=== PATIENT | female | born 1945 | race Caucasian/White ===

== ENCOUNTER → 2016-05-13 | Outpatient (CLI) | payer OTHER, MEDICARE ==
--- NOTE | 2016-05-13 17:00 | DX ---
Lumbar Spine, Two Views 1317 hours Indication: Lumbar spine stenosis. Comparison: Two-view lumbar spine dated August 29, 2014. Technique: Upright AP and lateral views. Findings: 9 mm of anterolisthesis of L4 on L5, posterior interspinous fixator devices at L4-L5, mild -to-moderate degenerative disk arthropathy at L4-L5, severe degenerative disk disease at L5-S1, and m arked productive facet arthropathy at L4-L5 and L5-S1 are all unchanged. No compression fracture or b one lesion has developed. Impression: 1. Grade 1 spondylolisthesis at L4-L5 and associated degenerative disk and facet arthropathy in the l umbar spine are unchanged. 2. No compression fracture.
== END ==
LOC: FIMAGING 13:05
PROVIDERS: ATTEND Orthopaedic Surgery Orthopaedic Surgery of the Spine
DX: M51.36 Other intervertebral disc degeneration, lumbar region (principal); M43.16 Spondylolisthesis, lumbar region

== ENCOUNTER 2016-05-14 08:40 | Inpatient (IN) | payer OTHER, MEDICARE ==
--- NOTE | 2016-05-13 17:19 | GHP ---
[f rep st] PREOP HISTORY AND PHYSICAL DATE OF ADMISSION: 05/14/2016 HISTORY: The patient is a pleasant woman whom I have known for a couple of years. She is 2 years st atus post an L4-5 laminectomy with posterior instrumentation and fusion using intraspinous process de vice for spinal stenosis and degenerative spondylolisthesis. The patient ultimately recovered from h er surgery and was doing quite well. She noted that 100% of her preoperative right lower extremity p ain had resolved at her 3 month appointment. The patient then states that she fell in July of 2015 a nd injured her back as well as her left knee. She states that she had surgery on her left knee in 2015 but has continued to have low back pain and bilateral lower extremity pain. She compla ins of cramping in bilateral buttocks, right slightly greater than the left. She has tried physical therapy, and dry needling as well as pain medication. On a followup MRI, she has had recurrent L4-5 stenosis as well as what appears to be new left L5-S1 foraminal stenosis. The instrumentation at L4- 5 appears to be well seeded and intact. Due to this pain that she has been dealing with since July of 2015, she has elected to undergo further surgery. This is in the form of a revision L4-5 partial laminectomy with revision of the interspinous process device and a left L5-S1 laminal foraminotomy, a lso with an interspinous process device if her sacral anatomy allows. SOCIAL HISTORY: Negative for tobacco and positive for social use of alcohol. FAMILY HISTORY: Cancer. PAST MEDICAL HISTORY: Negative. PAST SURGICAL HISTORY: The patient has had an exploratory laparotomy due to a liver laceration many years ago. She has also had the aforementioned L4-5 partial laminectomy with posterior instrumentati on and fusion. ALLERGIES: None. MEDICATIONS: Trazodone and Vicodin. REVIEW OF SYSTEMS: A 10-point review of systems is negative for any pertinent positives. PHYSICAL EXAM: GENERAL: The patient is a well developed, well nourished, very pleasant woman to int eract with. CARDIAC: Reveals a regular rate and rhythm without any detectable murmur, rub or gallop . LUNGS: Clear to auscultation. ABDOMEN: Benign with good bowel sounds throughout. Motor strengt h of bilateral lower extremities is 5/5 throughout with the exception of the left EHL is 4/5. Sensat ion is intact to bilateral lower extremities. Straight leg raising is negative x2. She is tender in the right sciatic notch and in the left L5-S1 paraspinal muscles. DIAGNOSTIC DATA: New MRI shows left L5-S1 foraminal stenosis and recurrent L4-5 stenosis. IMPRESSION: 1. Left L5 and S1 radiculopathy. 2. Recurrent stenosis at L4-5. 3. Left L5-S1 foraminal stenosis. PLAN: Patient will undergo revision surgery as previously mentioned. Because she lives alone in [place], [place], she will need postoperative inpatient snf facility postoperatively and krishna has decided she would like to go to [facility] for this. I think she will be a good candidate. Po tential risks, benefits, and possible complications of the upcoming surgery have been discussed at [facility]. These include, but are not limited to, dural tear with CSF leak, meningitis, nerve root injury , partial or complete paralysis, infection, lack of improvement in symptomatology. specifically back pain and bilateral lower extremity pain, nonunion, need for further surgery, DVT, PE, pneumonia, stro ke, heart attack, hemorrhage, blindness, and . The patient understands these risks and that the re is a chance that her symptoms may not improve, and is willing to proceed. She will be n.p.o. afte r midnight farzad. /[id number]/MODL
[~2016-05-14 08:40] MED LIST: BACITRACIN 50,000 UNITS/10 ML SYR IRR ONE; BUPIVACAINE 0.25% 30 ML SDV ONE; BUPIVACAINE/EPI 0.25% 30 ML SDV ONE; GENTAMICIN 80 MG/NACL 100 ML IV ONE; THROMBIN (RECOMBINANT) 20,000 UNIT VIAL TP ONE; ceFAZolin 2 GM/DEXTROSE 100 ML IV ONE; methylPREDNISolone SOD SUCC 125 MG/2 ML VIAL ONE
[2016-05-14] MEDS ORDERED: CEFAZOLIN 2 GM/DEXTROSE/100 ML BAG IV ONE (09:00)
[2016-05-14] MEDS ORDERED: LIDOCAINE 1% 5 ML SDV ONE (09:29)
[2016-05-14] MEDS ORDERED: LR 1,000 ML IV ONE (10:03)
[2016-05-14] MEDS ORDERED: MIDAZOLAM 2 MG/2 ML VIAL ONE (10:10)
[2016-05-14] MEDS ORDERED: fentaNYL 100 MCG/2 ML INJ ONE ×3 (10:11→13:37)
[2016-05-14] MEDS ORDERED: PROPOFOL/EMULSION 500 MG/50 ML BOTTLE IV ONE (10:12)
[2016-05-14] MEDS ORDERED: PROPOFOL 200 MG/20 ML VIAL ONE (10:12)
[2016-05-14] MEDS ORDERED: LIDOCAINE 2% 5 ML SDV ONE (10:14)
[2016-05-14] MEDS ORDERED: ROCURONIUM 50 MG/5 ML VIAL ONE ×2 (10:16→11:08)
[2016-05-14] MEDS ORDERED: REMIFENTANIL HCL 1 MG VIAL ONE (10:17)
[2016-05-14] MEDS ORDERED: ESMOLOL HCL 100 MG/10 ML VIAL IV ONE (10:32)
[2016-05-14] MEDS ORDERED: DEXAMETHASONE 4 MG/ML VIAL ONE (10:50)
[2016-05-14] MEDS ORDERED: PHENYLEPHRINE HCL 100 MCG/ML SYR ONE ×2 (10:51→11:58)
[2016-05-14] MEDS ORDERED: OXYCODONE/APAP 5/325 TAB PO PRN (10:53)
[2016-05-14] MEDS ORDERED: HYDROmorphONE/DILAUDID 1 MG/ML SYR IVP PRN (10:53)
[2016-05-14] MEDS ORDERED: BISACODYL 10 MG SUPP PR PRN (10:53)
[2016-05-14] MEDS ORDERED: ONDANSETRON 4 MG/2 ML VIAL IVP PRN (10:53)
[2016-05-14] MEDS ORDERED: LACTULOSE 20 GM/30 ML UDCUP PO PRN (10:53)
[2016-05-14] MEDS ORDERED: ONDANSETRON DISINTEGRATING 4 MG TAB PO PRN (10:53)
[2016-05-14] MEDS ORDERED: ACETAMINOPHEN 325 MG TAB PO PRN (10:53)
[2016-05-14] MEDS ORDERED: MAGNESIUM HYDROXIDE 30 ML UDCUP PO PRN (10:53)
[2016-05-14] MEDS ORDERED: DIAZEPAM 10 MG/2 ML SYR IVP PRN (10:53)
[2016-05-14] MEDS ORDERED: diphenhydrAMINE 25 MG CAP PO PRN (10:53)
[2016-05-14] MEDS ORDERED: POLYETHYLENE GLYCOL 3350 17 GM PKT PO PRN (10:53)
[2016-05-14] MEDS ORDERED: D5W 1/2 NS W/ 20 KCl/L 1,000 ML IV SCH (11:00)
[2016-05-14] MEDS ORDERED: THROMBIN (RECOMBINANT) 20,000 UNIT VIAL TP ONE (11:31)
[2016-05-14] MEDS ORDERED: ONDANSETRON 4 MG/2 ML VIAL ONE (11:51)
[2016-05-14] MEDS ORDERED: ceFAZolin 1 GM VIAL ONE (13:10)
--- NOTE | 2016-05-14 13:13 | POSTOPPROG ---
Post Op Note Date of Operation: 05/14/16 Surgeon: Elsy Liang [place] Diver: Teodoro Lima SA Anesthesiologist: [place] Anesthesia: GET(General Endotracheal) Pre-op Diagnosis: Recurrent L4-5 stenosis, L L5-S1 foraminal stenosis Post-op Diagnosis: same Indication: LLE pain and back pain, Procedure: revision L4-5 lami, removal of L4-5 ISPD, L L5-S1 foramin, L4-5-S1 ISPD/fus Findings: severe epidural adhesion L4-5, L L5-S1 mod stenosis Inf/Abcess present in the surg proc area at time of surgery?: No Depth: Deep Incisional (Fascial) EBL: 50 cc Drains: Gabriel Brannon
[2016-05-14] MEDS ORDERED: DIAZEPAM 10 MG/2 ML SYR ONE (13:37)
--- NOTE | 2016-05-14 15:12 | GOP ---
[f rep st] OPERATIVE REPORT DATE OF OPERATION: 05/14/2016 SURGEON: Elsy Mendoza MD ENVIRONMENTAL SCIENTIST: Uli Lima SA ANESTHESIA: General endotracheal intubation. ANESTHESIOLOGIST: Dr. Jigar Salvador PREOPERATIVE DIAGNOSIS: 1. Two years status post L4-5 partial laminectomy, bilateral facet cyst excision, and posterolateral arthrodesis with Tory Spine ZIP interspinous process device. 2. Recess stenosis L4-5. 3. Left L5-S1 foraminal stenosis. POSTOPERATIVE DIAGNOSIS: 1. Two years status post L4-5 partial laminectomy, bilateral facet cyst excision, and posterolateral arthrodesis with Tory Spine ZIP interspinous process device. 2. Recess stenosis L4-5. 3. Left L5-S1 foraminal stenosis. PROCEDURE PERFORMED: Removal of L4-5 posterior interspinous process device and exploration of arthro desis, revision L4-5 laminectomy, left L5-S1 foraminotomy, L4-5 and L5-S1 posterolateral arthrodesis with instrumentation using inFreeDA Spine StabiLink interspinous process device x2. FINDINGS: Significant restenosis L4-5 centrally due to profound epidural fibrosis. Also, the patien t had moderate left L5-S1 foraminal stenosis due to ligamentum flavum hypertrophy and a broad-based d isk bulge. ESTIMATED BLOOD LOSS: 50 cc. INDICATIONS: Patient is a pleasant 71-year-old woman, who is 2 years status post the aforementioned L4-5 laminectomy, posterior fusion with instrumentation for spondylolisthesis and stenosis. Initiall y, she had done very well. Then, the patient states that she had fallen and her symptoms returned. She has tried a number of nonoperative treatments and despite that, her back pain and bilateral leg p ain have continued to increase. On an updated MRI, she was found have restenosis at L4-5, as well as left L5-S1 foraminal stenosis. The instrumentation appeared to be intact. She has elected to under go surgery. No guarantees were given in regard to surgical outcome. Potential risks, benefits, poss ible complications have been thoroughly discussed including, but not limited to, dural tear with CSF leak, meningitis, nerve root injury, partial or complete paralysis, infection, need for further surge ry, lack of improvement in symptomatology, as well as DVT, PE, pneumonia, stroke, heart attack, hemor rhage, blindness, and . DESCRIPTION OF PROCEDURE: After obtaining both written and verbal consent from the patient, she was brought to the operating room, where she underwent general endotracheal intubation. Patient received IV antibiotics. Javed catheter was placed. Patient was rolled to the prone position on the Craig table. All 4 extremities were padded well. The face and eyes were padded per the anesthesiologist. A lateral fluoroscopic x-ray was obtained for localization. The lumbar spine was prepped and drape d in the normal sterile fashion. A timeout was performed with the entire operating room team confirm ing patient's name, date of , planned surgical procedure, including levels. After a sterile prep and drape, a midline longitudinal incision was made from L4-S1 partly through th e previous scar. There were no signs of infection. Self-retaining retractors were placed. The prev iously placed interspinous process device was identified. There was no breakage or loosening of inte rnal fixation. This was removed via the barrow worker helper's recommended technique. It was removed in tot o and once it was clearly visualized, there was no evidence of loosening hardware, malfunction, or br eakage. Under loupe magnification, the L4-5 level was identified and there was a very abundant amount of epid ural scar tissue at the surgical level. The previous bone graft was taken down and the laminae were identified at both L4 and L5. Under loupe magnification, the epidural fibrosis that was completely a dhered to the dura was gently freed up. I was able to remove about 70% of it. The laminectomy was t hen extended laterally, as well as proximally to further decompress the canal. Moderate stenosis was identified and this was almost completely due to the profound amount of epidural fibrosis that the p atient formed. A Copan was then used to palpate in the epidural space, and the exiting nerve roots , as well as the midline thecal sac, was fully decompressed. Then, the L5-S1 level was addressed and an intraoperative x-ray confirmed localization in the foramen on the left at L5-S1. Again, under loupe magnification the neuroforamen was identified on the left at L5-S1. A 2 mm Kerrison was then used to open up the foramen and removed the ligamentum flavum. T he S1 nerve root was identified and had no compressive pathology upon it. The disk space was identif ied and there was a moderate broad-based disk herniation, but no annular tear and no fragment. There fore, it was felt best not to create an annulotomy. A Copan was used to palpate in the foramen on the left at L5-S1. There was moderate stenosis and this was mainly due to ligamentum flavum hypertro phy, as well as the underlying disk bulge. Therefore, the ligamentum flavum was removed with a 2 and 3 mm Kerrison and a foraminotomy Kerrison as well. It should be mentioned that somatosensory-evoked potentials, motor-evoked potentials, and EMGs were b eing performed throughout the entire surgery and there were no significant changes. At this time, 125 mg of Solu-Medrol was placed over the exiting left L5 nerve root to decrease inflam mation postoperatively. Pieces of Gelfoam were placed over the L4-5 revision site and the left L5-S1 foraminotomy site. Then, using the caliper with the Southern Spine StabiLink device, the L4-5 level measured 14 mm in th e interspinous space and 10 mm at L5-S1. Therefore, first of all a 14 mm interspinous process device was assembled by connecting the locking device to the tray device. It was then placed deeply and se ated within the lamina at L4 and L5 with excellent bone purchase. It was tightened down and torqued per the barrow worker helper's recommendations. The locking screw was then tightened down and the health editor w as then removed. It was visualized and had excellent bone purchase. Then, a 10 mm tray device and l ocking device were then assembled also and placed at the L5-S1 level. However, this interspinous and supraspinous ligament was preserved to maintain stability and therefore, it was placed 1 component h ad a time. The locking screw was then tightened down and the device was tightened using a torque wre nch. The health editor was removed. An AP and a lateral fluoroscopic view showed good position of winter intern al fixation at L4-5 and L5-S1. There was no change in the spondylolisthesis at the L4-5 level that s he had had previously. Then, decortication of the facet joints at L4-5 and L5-S1 was performed using a 5 mm round bur and a rongeur. Size large bone morphogenic protein and 30 cc of crushed cancellous bone graft were mixed w ith 20 cc of Estelita and all of this was packed in the posterolateral position from L4 to S1 for bone fusion augmentation. A 10 flat BRYN drain was placed deep to the fascial layer and sewn in with a 2-0 nylon suture at the le aniyah of the skin. The wound was closed using a #1 Vicryl, 0 Vicryl, and skin scott. Hemostasis had been obtained prior to closure. Sterile dressing was applied. Patient was rolled to the supine position after her brace was placed. Javed catheter was left in arnaud ce. COMPLICATIONS: None. There were no changes in spinal cord monitoring. DRAINS: One Gabriel-Brannon drain. POSTOPERATIVE PLAN: Close neurologic observation, close airway observation, PT, OT and pain control. /[id number]/MODL
--- NOTE | 2016-05-14 17:26 | DX ---
Intraoperative Fluoroscopy History: Lumbar fusion Comparison: May 17, 2014 Dose =1.70 mGy Findings: 3 spot films demonstrate removal of a prior posterior interlaminar clamp between L4 and L5 and placement of 2 new interlaminar clamps at L4-L5 and L5-S1 which place the lumbar spine in stable intraoperative anatomic alignment. A mild spondylolisthesis at L4-L5 is stable as is straight alignm ent at L5-S1. Impression: Stable intraoperative alignment.
[2016-05-14] MEDS: DIAZEPAM 5 MG TAB PO PRN (18:13)
[2016-05-14] MEDS: SENNOSIDES/DOCUSATE SODIUM TAB PO SCH (22:02)
[2016-05-14] MEDS: morphINE SR 15 MG TAB PO SCH (22:02)
[2016-05-14] MEDS: traZODone 50 MG TAB PO SCH (22:03)
[2016-05-15] MEDS: HYDROCODONE/APAP 10/325 TAB PO PRN ×3 (02:32→18:10)
[2016-05-15] MEDS: DIAZEPAM 5 MG TAB PO PRN (02:32)
[2016-05-15] MEDS: morphINE SR 15 MG TAB PO SCH ×3 (08:51→21:49)
[2016-05-15] MEDS: SENNOSIDES/DOCUSATE SODIUM TAB PO SCH ×3 (08:51→21:50)
--- NOTE | 2016-05-15 16:22 | SOAPPROG ---
SOAP Progress Note Assessment/Plan: Assessment: post op day 1, s/p revision L4-5 lami, fusion, ISPD and L L5-S1 foraminotomy/ ISPD. Pt doing reasonably well. Plan: Cont PT and OT. 05/15/16 16:20 Subjective: Pt states bilateral 3rd toes are numb. Complains of lumbar incisional pain. Objective: Vital Signs Temp Pulse Resp BP Pulse Ox 37.0 C 97 15 121/59 H 97 05/15/16 16:00 05/15/16 16:00 05/15/16 16:00 05/15/16 16:00 05/15/16 16:00 05/14/16 05/15/16 05/16/16 05:59 05:59 05:59 Intake Total 3650 1500 Output Total 2725 245 Balance 925 1255 BLE motor 5/5. Ifeoma's negative x 2. Drain functioning properly. ICD10 Worksheet Patient Problems: Problems Problem Status Diagnosed Spondylolisthesis of lumbar region Acute
[2016-05-15] MEDS: traZODone 50 MG TAB PO SCH (21:50)
[2016-05-16] MEDS: morphINE SR 15 MG TAB PO SCH ×2 (08:46→22:28)
[2016-05-16] MEDS: SENNOSIDES/DOCUSATE SODIUM TAB PO SCH ×2 (08:46→22:28)
[2016-05-16] MEDS: HYDROCODONE/APAP 10/325 TAB PO PRN ×2 (11:03→18:40)
--- NOTE | 2016-05-16 17:53 | SOAPPROG ---
SOAP Progress Note Assessment/Plan: Assessment: post op day 1, s/p revision L4-5 lami, fusion, ISPD and L L5-S1 foraminotomy/ ISPD. Pt doing reasonably well. Plan: Cont PT and OT. 05/15/16 16:20 05/16/16 17:51 post op day 2, s/p revision surg. pt doing fairly well. Pain reasonably controlled. Plan: transfer to [facility] tomorrow. Subjective: Pt states preop Left buttock and leg pain markedly improved. Objective: Vital Signs Temp Pulse Resp BP Pulse Ox 36.9 C 66 14 103/73 95 05/16/16 16:00 05/16/16 16:00 05/16/16 16:00 05/16/16 16:00 05/16/16 16:00 05/15/16 05/16/16 05/17/16 05:59 05:59 05:59 Intake Total 3650 1550 1500 Output Total 2725 330 30 Balance 925 1220 1470 BLE motor 5/5. jordyn's negative x 2. Drain removed by me without difficulty. Wound clean and dry. ICD10 Worksheet Patient Problems: Problems Problem Status Diagnosed Spondylolisthesis of lumbar region Acute
[2016-05-16] MEDS: traZODone 50 MG TAB PO SCH (22:28)
[2016-05-16 22:30] VITALS: TEMP 98.5
[2016-05-17 07:28] VITALS: BP 106/45; PULSE 61; RESP 16; O2SAT 91
[2016-05-17] MEDS: HYDROCODONE/APAP 10/325 TAB PO PRN ×2 (08:22→14:33)
[2016-05-17] MEDS: morphINE SR 15 MG TAB PO SCH (08:22)
[2016-05-17] MEDS: SENNOSIDES/DOCUSATE SODIUM TAB PO SCH (08:22)
--- NOTE | 2016-05-17 08:46 | SOAPPROG ---
SOAP Progress Note Assessment/Plan: Assessment: post op day 1, s/p revision L4-5 lami, fusion, ISPD and L L5-S1 foraminotomy/ ISPD. Pt doing reasonably well. Plan: Cont PT and OT. 05/15/16 16:20 05/16/16 17:51 post op day 2, s/p revision surg. pt doing fairly well. Pain reasonably controlled. Plan: transfer to [facility] tomorrow. 05/17/16 08:45 post op day 3. Pt ready for transfer to Rehab. Subjective: Pt states she slept well. Objective: Vital Signs Temp Pulse Resp BP Pulse Ox 36.9 C 61 16 106/45 L 91 L 05/17/16 07:27 05/17/16 07:27 05/17/16 07:27 05/17/16 07:27 05/17/16 07:27 05/16/16 05/17/16 05/18/16 05:59 05:59 05:59 Intake Total 1550 2200 Output Total 330 30 Balance 1220 2170 BLE motor 5/5. jordyn's negative x2. Wound clean and dry. no signs of infection. Pt inadvertantly bending. Needs multiple Qs to avoid B/L/T. ICD10 Worksheet Patient Problems: Problems Problem Status Diagnosed Spondylolisthesis of lumbar region Acute
--- NOTE | 2016-05-17 08:54 | PDIAF ---
- Diagnosis Code Status: Full Code - Medication Management Discharge Medications: Medications to Continue on Transfer traZODone [traZODONE 50MG (*)] 100 mg PO HS 05/06/16 [Last Taken 05/13/16] Acetaminophen [Tylenol 325mg (*)] 325 - 650 mg PO Q4HRS PRN #0 tab 05/17/16 [ Last Taken Unknown] Diazepam [Valium 5 MG (*)] 5 mg PO Q8HRS PRN #30 tab 05/17/16 [Last Taken Unknown] HYDROcodone/APAP 10/325 [[place] 10/325 (*)] 1 - 2 tab PO Q6HRS PRN #0 tab [Last Taken Unknown] Sennosides/Docusate Sodium [Senokot-S] 1 - 2 tab PO BID #0 tab 05/17/16 [Last Taken Unknown] oxyCODONE/APAP 5/325 [Percocet 5/325 (*)] 1 - 2 tab PO Q4HRS PRN #60 tab [Last Taken Unknown] traZODone [traZODONE 50MG (*)] 100 mg PO HS #0 tab 05/17/16 [Last Taken Unknown] Residential Antibiotics: none Discharge Medications: Refer to the Discharge Home Medication list for PRN reason. PICC Care - Routine: N/A - Orders Services needed: Registered Nurse, Physical Therapy, Occupational Therapy Home Care Face to Face: 05/17/16 Isolation Type: none Oxygen: none Diet Recommendation: no restrictions on diet Diet Texture: Regular Texture Diet Javed: Not applicable Paolo Stockings Discontinue Date: While in bed. Wound Care Instructions: Remove lumbar spine dressing. Allow pt to shower daily. After shower place dry dressing and replace brace. NO ointment. Date to Remove Sutures/Williams: 05/28/16 Activity/Weight Bearing Restrictions: NO bending, lifting, twisting. Pt needs multiple reminders. - Follow Up Care Current Providers and Referrals: IN STATE,. [Primary Care Provider] -
--- NOTE | 2016-05-17 09:26 | GDS ---
[f rep st] DISCHARGE SUMMARY Date of transfer to [facility]: May 17, 2016. HOSPITAL COURSE: The patient is a pleasant 71-year-old woman who is 2 years status post an L4-5 lami nectomy and posterior fusion with instrumentation for spondylolisthesis and stenosis by myself. The patient had done well postoperatively. However, she stated that in July of 2015, she fell and her s ymptoms escalated. She has tried numerous nonoperative treatments but despite that, she had continue d back pain and bilateral leg pain, left greater than right. On MRI, she was found to have restenosi s at L4-5 and a left L5-S1 foraminal stenosis. She elected to undergo surgery. On the day of admiss ion, she underwent a general endotracheal intubation. At the time of surgery, the previous interspin ous process device which was intact was removed. The previous laminectomy was explored at L4-5, and she was found to have severe epidural fibrosis causing restenosis at that level. She was re-decompre ssed. Then the left L5-S1 foramina was decompressed as well. Interspinous process devices were plac ed at L4-5 and L5-S1 with a posterolateral arthrodesis. A drain was placed during the surgery. This was left in and removed on postoperative day 2. There were no changes in spinal cord monitoring during the surgery. Postoperatively, pain control was adequate with Percocet, Vicodin, and Valium. She was kept on IV an tibiotics. Her drain was removed without difficulty. Her wound was clean, dry, and intact and showe d no signs of infection. The patient noted immediate improvement of her lower extremity pain. She was seen in PT and OT. She required numerous reminders not to bend and twist, especially when getting out of bed and picking up items. She is being transferred to [facility] for further aggressive inpatient PT and OT, and daily dry dressing changes to her lumbar wound as the patient lives alone and does not have any help. I expect approximately a 10-day stay in rehabilitation, and the patient has a followup edith ointment with me in my office on May 28 at 1:00 p.m., at which time it is likely that she shou ld be able to be discharged to home that day if she progresses nicely. In the past, the patient has experienced high requirements for pain medication. On this hospital sta y, we discussed it at length and were very cautious not to give her too much pain medication, and she was in agreement. Therefore, my recommendation is to use Vicodin sparingly during the day. [facility] may use Valium to help her sleep and if that is not adequate, she may also have Percocet at [facility]. She requires inpatient rehabilitation services with a custodial facility, and aggressive PT and OT. She also requires a daily dry dressing change to her lumbar wound with a daily shower. She kely l have her lumbar brace removed. Then the dressing will be removed, and she may take a shower but wi ll need many cues to avoid bending and twisting in the shower. She will need a dry dressing placed a fterward and no ointment. Overall, the patient is doing well and tolerating a regular diet. Copy requested to: [facility] /[id number]/MODL
[2016-05-17] MEDS: DIAZEPAM 5 MG TAB PO PRN (11:53)
== END 2016-05-17 14:56 | DRG 460 ==
LOC: F3N 08:40
PROVIDERS: ADMIT Orthopaedic Surgery Orthopaedic Surgery of the Spine; ATTEND Orthopaedic Surgery Orthopaedic Surgery of the Spine
PROC: 00NY0ZZ Release Lumbar Spinal Cord, Open Approach (ICD-10-PCS; principal; 2016-05-14 10:15)
PROC: 0SG00AJ Fusion of Lumbar Vertebral Joint with Interbody Fusion Device, Posterior Approach, Anterior Column, Open Approach (ICD-10-PCS; principal; 2016-05-14 10:15)
PROC: 4A1004G Monitoring of Central Nervous Electrical Activity, Intraoperative, Open Approach (ICD-10-PCS; principal; 2016-05-14 10:15)
PROC: 0SP00AZ Removal of Interbody Fusion Device from Lumbar Vertebral Joint, Open Approach (ICD-10-PCS; principal; 2016-05-14 10:15)
PROC: 0SG30AJ Fusion of Lumbosacral Joint with Interbody Fusion Device, Posterior Approach, Anterior Column, Open Approach (ICD-10-PCS; principal; 2016-05-14 10:15)
PROC: 01NR0ZZ Release Sacral Nerve, Open Approach (ICD-10-PCS; principal; 2016-05-14 10:15)
PROC: 01NB0ZZ Release Lumbar Nerve, Open Approach (ICD-10-PCS; principal; 2016-05-14 10:15)
DX: M48.06 Spinal stenosis, lumbar region (principal); M48.07 Spinal stenosis, lumbosacral region; M54.16 Radiculopathy, lumbar region; G47.00 Insomnia, unspecified; Z98.1 Arthrodesis status; Z80.9 Family history of malignant neoplasm, unspecified
CPT/HCPCS: 97161-GP; 97165-GO; 97530-GO; 97535-GO; C1713; C1762; G8978-GP-CI; G8979-GO-CI; G8979-GP-CI; G8980-GO-CI; G8987-GO-CJ; G8988-GO-CI; J0690; J1100; J1580; J2250; J2370; J2405; J2704; J3010